=== PATIENT | female | born 1980 | race Caucasian/White ===

== ENCOUNTER 2020-03-25 17:11 | Emergency (ER) | payer SELFPAY ==
[~2020-03-25] VITALS: Ht 170.2 cm; Wt 61.2 kg
[2020-03-25 17:13] VITALS: BP 135/81
--- NOTE | 2020-03-25 17:30 | NUR ---
SENG FROM STREET. TO ER BED 14. AAOX4. NOT IN RESP DISTRESS. AMBULATORY. CAME IN FOR "I FEEL HUNGRY" . PT ADMITS TO DOING METH. NO MEDICAL COMPLAINT. MD AT BEDSIDE FOR MEÑO.
--- NOTE | 2020-03-25 17:35 | NUR ---
PT PROVIDED WITH FOOD AND DRINK
--- NOTE | 2020-03-25 18:57 | NUR ---
Patient given written and verbal discharge instructions. Patient verbalizes understanding of instructions. Patient is ambulatory with steady gait. Refuses offer of senior living placement. Patient given list of available shelters in surrounding area.
--- NOTE | 2020-03-25 18:59 | NUR ---
[facility] WAIVER SIGNED BY THE PT AND GIVEN DALI TO GO
== END 2020-03-25 19:00 | disposition home or self-care (01) ==
LOC: ER 17:13
DX: F15.10 Other stimulant abuse, uncomplicated (principal)